=== PATIENT | female | born 1980 | race Caucasian/White ===

== ENCOUNTER 2020-12-25 13:36 | Emergency (ER) | payer OTHER ==
[~2020-12-25 13:36] MED LIST: PERCOCET 5-3251 EACH PO
[2020-12-25] MEDS ORDERED: MEDROL DOSEPAK 24 MG PO (13:45)
== END 2020-12-25 14:05 | disposition home or self-care (01) ==
LOC: ER1 13:36
DX: L23.7 Allergic contact dermatitis due to plants, except food (principal); Z88.1 Allergy status to other antibiotic agents; F17.200 Nicotine dependence, unspecified, uncomplicated
CPT/HCPCS: 96372; 99282; J2930

== ENCOUNTER → 2021-11-30 | Outpatient (CLI) | payer OTHER ==
[~2021-11-30] MED LIST changes: +MEDROL DOSEPAK 24 MG PO
== END ==
LOC: MRI 09:30
DX: M54.16 Radiculopathy, lumbar region (principal); M51.27 Other intervertebral disc displacement, lumbosacral region
CPT/HCPCS: 72148

== ENCOUNTER 2022-02-01 22:25 | Emergency (ER) | payer OTHER ==
[2022-02-01] MEDS ORDERED: VISTARIL 25 MG25 MG PO (22:52)
[2022-02-01] MEDS ORDERED: CORTIZONE TP (22:52)
== END 2022-02-01 22:55 | disposition home or self-care (01) ==
LOC: ER1 22:25
DX: R21 Rash and other nonspecific skin eruption (principal); F17.200 Nicotine dependence, unspecified, uncomplicated; Z88.1 Allergy status to other antibiotic agents
CPT/HCPCS: 99282; Q0177